=== PATIENT | female | born 1975 | race Two or more races ===

== ENCOUNTER 2023-04-02 15:03 | Emergency (ER) | payer MEDICAID, OTHER ==
[~2023-04-02] VITALS: Ht 154.9 cm; Wt 104.6 kg
[2023-04-02] MEDS ORDERED: KETOROLAC TROMETH 60MG/2ML VIAL IM ONE (16:30)
[2023-04-02 16:47] VITALS: BP 124/71; PULSE 66; RESP 18; TEMP 97.9; O2SAT 98
[2023-04-02] MEDS ORDERED: METH-1182 PO (17:19)
[2023-04-02] MEDS ORDERED: IBUP-1456 PO (17:19)
== END 2023-04-02 17:25 | disposition home or self-care (01) ==
LOC: ER 15:03
DX: S16.1XXA Strain of muscle, fascia and tendon at neck level, initial encounter (principal); S39.012A Strain of muscle, fascia and tendon of lower back, initial encounter; S76.012A Strain of muscle, fascia and tendon of left hip, initial encounter; R51.9 Headache, unspecified; Z90.710 Acquired absence of both cervix and uterus; Z79.1 Long term (current) use of non-steroidal anti-inflammatories (NSAID); Z79.899 Other long term (current) drug therapy; W01.0XXA Fall on same level from slipping, tripping and stumbling without subsequent striking against object, initial encounter; Y93.89 Activity, other specified; Y92.89 Other specified places as the place of occurrence of the external cause; Y99.8 Other external cause status
CPT/HCPCS: 70450; 72040; 72100; 73502; 96372; 99285; J1885